=== PATIENT | female | born 1950 | race Caucasian/White ===

== ENCOUNTER → 2018-02-21 15:20 | Outpatient (CLI) | payer BC, SELFPAY ==
--- NOTE | 2018-02-21 15:25 | EKG12_ITS ---
Test Reason : PRE OP Blood Pressure : / mmHG Vent. Rate : 059 BPM Atrial Rate : 059 BPM P-R Int : 140 ms QRS Dur : 080 ms QT Int : 432 ms P-R-T Axes : 064 051 061 degrees QTc Int : 427 ms Sinus bradycardia Minimal voltage criteria for LVH, may be normal variant Borderline ECG Confirmed by HALIE BARROW, CASSIE ([id number]), purchase request editor NATALIE BELTRAN ([id number]) on 02/23/2018 1:11:53 PM Referred By: RUBY Confirmed By:CASSIE AMBROSE MD
== END ==
PROVIDERS: Family Provider Family Medicine; PCP Family Medicine; Visit Provider Orthopaedic Surgery
DX: Z01.810 Encounter for preprocedural cardiovascular examination (principal); Z01.811 Encounter for preprocedural respiratory examination
CPT/HCPCS: 93005

== ENCOUNTER 2019-03-24 15:04 | Emergency (ER) | payer BC, SELFPAY ==
[2019-03-24 15:05] VITALS: BP 129/83; PULSE 75; RESP 18; TEMP 36.6; O2SAT 99; BMI 23.1
--- NOTE | 2019-03-24 15:16 | ED.DCSUM_ITS ---
- ER Visit Summary Date of Service: 03/24/19 Chief Complaint: [Left eye redness] History of Present Illness: The patient is a 68 F [presents to the emergency department with left eye redness since yesterday evening. Patient also notes some mild burning discomfort. Patient had some tearing from the eye. She denies any photophobia. She denies any trauma. She does state that she thinks she touched her eye with some suntan lotion yesterday. Patient denies any visual changes. Patient is a diabetic and has history of high cholesterol. Patient states that she had retina surgery on her left eye last year.] Physical Examination: HEENT-PERRLA, EOMI. Cranial nerves II through XII grossly intact. TMs clear. Mucous membranes moist. No adenopathy. Thigh-patient has some faint conjunctival erythema around the iris. Small amount of tearing noted. Eyelids everted and no foreign body seen. After tetracaine instilled in the left eye patient had her eye pressure checked and it was 15. Visual acuity reveals patient have significant difference between the right eye and the left eye. Patient states that it is not unusual for her to have decreased vision left eye but may be a little bit worse than usual. Patient is able to count fingers. Cardiovascular-regular rate and rhythm without murmur or ectopy Lungs-clear to auscultation, chest wall stable without crepitus or subcu emphysema Abdomen-normoactive bowel sounds, soft, nontender, no rebound or rigidity, no peritoneal signs. Extremities-intact ?4, normal range of motion, normal pulses, atraumatic [] Test Results: [None indicated] Emergency Department Course and Treatment: [Patient will be started on gentamicin ophthalmic drops. I suspect the vision difference is a chronic issue for her.] Treatment Plan: [She will be referred to her loan expeditor for follow-up within the next 1 to 2 days.] Disposition: [Discharged home in stable condition.] Impression: [Left eye conjunctivitis] This note was generated with [employer] dictation software. It may contain incorrect words, spelling, and punctuation that were not noted in review of the chart prior to signing ED Disposition - Plan for ED Patient: Referrals: Ken Velásquez MD [Primary Care Provider] -
--- NOTE | 2019-03-24 15:27 | ED.DEP ---
ED Disposition - Plan for ED Patient: Instructions: CONJUNCTIVITIS, Bacterial Referrals: Ken Velásquez MD [Primary Care Provider] - Breezy Stack MD [STAFF PHYSICIAN] - 1-2 Days if not improving
[2019-03-24] MEDS: Fluorescein 1 MG STRIP 1 STRIP LEFT EYE (15:38)
[2019-03-24] MEDS: Tetracaine 0.5% Ophthalmic Bottle 1 DRP LEFT EYE (15:38)
[2019-03-24] MEDS: Gentamicin Sulfate 1 OPTH.BTL 2 DRP LEFT EYE (15:39)
== END 2019-03-24 15:39 | disposition home or self-care (01) ==
LOC: ED 15:29
PROVIDERS: Emergency Provider Emergency Medicine; Family Provider Family Medicine; PCP Family Medicine
DX: H10.9 Unspecified conjunctivitis (principal); E11.9 Type 2 diabetes mellitus without complications; E78.00 Pure hypercholesterolemia, unspecified; Z79.899 Other long term (current) drug therapy
CPT/HCPCS: 99282

== ENCOUNTER → 2019-10-22 15:49 | Outpatient (CLI) | payer BC, SELFPAY ==
--- NOTE | 2019-10-22 15:55 | EKG12_ITS ---
Test Reason : PRE OP Blood Pressure : / mmHG Vent. Rate : 065 BPM Atrial Rate : 065 BPM P-R Int : 136 ms QRS Dur : 082 ms QT Int : 414 ms P-R-T Axes : 030 014 021 degrees QTc Int : 430 ms Normal sinus rhythm Left atrial enlargement Left ventricular hypertrophy Abnormal ECG Confirmed by MATT BARROW, GAURAV ([id number]), news videotape editor NATALIE PORTILLO ([id number]) on 10/23/2019 10:18:33 AM Referred By: Poli Portillo Confirmed By:GAURAV GUTIERREZ MD
[2019-10-22 16:21] LABS: Hematocrit 44.2 % (37-47); Hemoglobin 14.6 g/dL (12.0-15.0); Mean Corpuscular Hgb 30.6 pg (27.0-32.0); Mean Corpuscular Volume 92.7 fL (81-99); Platelet Count 341 K/mm3 (150-450); RBC Distribution Width CV 12.8 % (11.6-14.6); RBC Distribution Width SD 43.6 fl (35.1-43.9); Red Blood Count 4.77 M/mm3 (4.2-5.4); White Blood Count 6.2 K/mm3 (4.4-11.0)
[2019-10-22 16:39] LABS: Anion Gap 9 (5-15); BUN 28 mg/dL (7-18); BUN/Creat Ratio 34.2 RATIO (10-20); Calcium,Total 8.9 mg/dL (8.5-10.1); Chloride 104 mmol/L (98-107); Creatinine, Serum 0.82 mg/dL (0.55-1.02); EST Glomerular Filtration Rate 74 mL/min (>60); Est Glom Filt Rate - Afr Amer 89 mL/min (>60); Glucose 97 mg/dL (74-106); Potassium 4.6 mmol/L (3.5-5.1); Sodium Level 139 mmol/L (136-145)
[2019-10-22 16:42] LABS: Prothrombin Time (Protime)PT. 13.1 SECONDS (11.7-14.9)
[2019-10-22 16:43] LABS: Partial Thromboplast Time 30.1 Seconds (24.1-36.2)
[2019-10-22 16:58] LABS: Hemoglobin A1c 5.9 % (4.2-6.3)
== END ==
PROVIDERS: PCP Family Medicine; Referring Provider Podiatrist Foot & Ankle Surgery; Visit Provider Podiatrist Foot & Ankle Surgery
DX: Z01.818 Encounter for other preprocedural examination (principal); E11.9 Type 2 diabetes mellitus without complications; Z01.811 Encounter for preprocedural respiratory examination; Z79.899 Other long term (current) drug therapy
CPT/HCPCS: 36415; 80048; 83036; 85027; 85610; 85730; 93005

== ENCOUNTER → 2019-11-21 16:27 | Outpatient (CLI) | payer BC, SELFPAY ==
[2019-11-21 17:05] LABS: Absolute Lymphocyte Count 1.73 X10^3/uL (0.83-4.51); Absolute Neutrophil Count 3.2 X10^3/uL (2.0-7.7); Basophil# 0.05 X10^3/uL; Basophil% 0.9 % (0-1); Eosinophil# 0.15 X10^3/uL; Eosinophils% 2.6 % (0-5); Hematocrit 44.4 % (37-47); Hemoglobin 14.3 g/dL (12.0-15.0); Lymphocyte # 1.73 X10^3/ul (4.0); Lymphocyte % 30.4 % (19-41); Mean Corp Hgb Conc 32.2 g/dL (32-36); Mean Corpuscular Volume 93.3 fL (81-99); Monocyte# 0.54 X10^3/uL; Monocyte% 9.5 % (0-10); NRBC Flagged by Analyzer 0 % (0-5); Neutrophil # 3.21 X10^3/uL (2.7-7.7); Neutrophil % 56.2 % (47-70); Platelet Count 354 K/mm3 (150-450); RBC Distribution Width CV 12.3 % (11.6-14.6); RBC Distribution Width SD 42.5 fl (35.1-43.9); Red Blood Count 4.76 M/mm3 (4.2-5.4); White Blood Count 5.7 K/mm3 (4.4-11.0)
[2019-11-21 18:04] LABS: Anion Gap 8 (5-15); BUN 33 mg/dL (7-18); BUN/Creat Ratio 51.7 RATIO (10-20); Calcium,Total 9.1 mg/dL (8.5-10.1); Chloride 105 mmol/L (98-107); Creatinine, Serum 0.64 mg/dL (0.55-1.02); EST Glomerular Filtration Rate 98 mL/min (>60); Est Glom Filt Rate - Afr Amer 119 mL/min (>60); Glucose 98 mg/dL (74-106); Potassium 4.2 mmol/L (3.5-5.1); Sodium Level 141 mmol/L (136-145)
== END ==
PROVIDERS: Physician Assistant; PCP Family Medicine; Referring Provider Podiatrist Foot & Ankle Surgery; Visit Provider Podiatrist Foot & Ankle Surgery
DX: Z01.818 Encounter for other preprocedural examination (principal)
CPT/HCPCS: 36415; 80048; 85025

== ENCOUNTER → 2020-02-11 10:25 | Outpatient (CLI) | payer BC, SELFPAY ==
[2020-02-11 10:45] LABS: Absolute Lymphocyte Count 1.58 X10^3/uL (0.83-4.51); Absolute Neutrophil Count 4.6 X10^3/uL (2.0-7.7); Basophil# 0.04 X10^3/uL; Basophil% 0.6 % (0-1); Eosinophil# 0.15 X10^3/uL; Eosinophils% 2.1 % (0-5); Hemoglobin 14.7 g/dL (12.0-15.0); Lymphocyte # 1.58 X10^3/ul (4.0); Lymphocyte % 22.3 % (19-41); Mean Corpuscular Hgb 29.6 pg (27.0-32.0); Mean Corpuscular Volume 92.6 fL (81-99); Monocyte# 0.69 X10^3/uL; Monocyte% 9.7 % (0-10); NRBC Flagged by Analyzer 0 % (0-5); Neutrophil # 4.61 X10^3/uL (2.7-7.7); Platelet Count 352 K/mm3 (150-450); RBC Distribution Width CV 12.9 % (11.6-14.6); RBC Distribution Width SD 43.6 fl (35.1-43.9); Red Blood Count 4.97 M/mm3 (4.2-5.4); White Blood Count 7.1 K/mm3 (4.4-11.0)
[2020-02-11 10:53] LABS: Prothrombin Time (Protime)PT. 13.1 SECONDS (11.7-14.9)
[2020-02-11 10:54] LABS: Partial Thromboplast Time 27.1 Seconds (24.1-36.2)
[2020-02-11 11:04] LABS: Hemoglobin A1c 5.7 % (3.8-5.6)
[2020-02-11 11:20] LABS: Anion Gap 3 (5-15); BUN 21 mg/dL (7-18); BUN/Creat Ratio 30.5 RATIO (10-20); Chloride 105 mmol/L (98-107); Creatinine, Serum 0.69 mg/dL (0.55-1.02); EST Glomerular Filtration Rate 90 mL/min (>60); Est Glom Filt Rate - Afr Amer 109 mL/min (>60); Glucose 100 mg/dL (74-106); Potassium 4.2 mmol/L (3.5-5.1); Sodium Level 138 mmol/L (136-145)
== END ==
PROVIDERS: PCP Family Medicine; Referring Provider Podiatrist Foot & Ankle Surgery; Visit Provider Podiatrist Foot & Ankle Surgery
DX: Z01.818 Encounter for other preprocedural examination (principal); E11.9 Type 2 diabetes mellitus without complications
CPT/HCPCS: 36415; 80048; 83036; 85025; 85610; 85730

== ENCOUNTER → 2020-02-19 10:26 | Outpatient (CLI) | payer BC, SELFPAY | PROVIDERS: PCP Family Medicine; Referring Provider Podiatrist Foot & Ankle Surgery; Visit Provider Podiatrist Foot & Ankle Surgery | DX: Z11.59 Encounter for screening for other viral diseases (principal) | CPT/HCPCS: 87635; C9803; U0003 ==

== ENCOUNTER 2024-03-01 10:44 | Emergency (ER) | payer MEDICARE, SELFPAY ==
[2024-03-01] VITALS (13 sets, daily range): BP systolic 114–152; BP diastolic 66–86; PULSE 54–98; RESP 14–18; TEMP 36.3–37.1; O2SAT 93–100; BMI 21.1
--- NOTE | 2024-03-01 10:58 | ED.RN ---
PT WAS TO HAVE FOOT SURGERY THIS MORNING BUT DR DENIED DOING THE SURGERY D/T THE WRIST REDNESS/INJURY. PT COULD NOT GET INTO PRIMARY SO THEY WENT TO URGENT CARE. URGENT CARE SAID THIS IS OVER OUR HEAD NM PT'S SON. THE FALL WAS YESTERDAY AT HOME WHEN TRYING TO MUSIC DIRECTOR THE CAT. DENIES HITTING HER HEAD OR ANY LOC. THEY ARE MOST CONCERNED AND UNSURE WITH THE REDNESS IF ITS INFECTION OR D/T A POSSIBLE FRACTURE. DENIES ANY LOSS OF SENSATION AND HAS ROM TO THE HAND AND WRIST BUT THERE IS TENDERNESS PRESENT. PT DOES HAVE A SMALL SCRATCH AND SON SAID SHE HAS A PUPPY THAT MAY HAVE SCRATCHED IT SO THEY ARE NOT SURE IF IT IS TWO THINGS GOING ON WITH THE WRIST AT ONCE.
--- NOTE | 2024-03-01 11:22 | EX.ED.UPPERE ---
HPI History of Present Illness Chief Complaint: Upper Extremity Injury Informant: patient Narrative Narrative: Patient is a 73-year-old female with history of osteoporosis and hyperlipidemia presenting for worsening redness to her right wrist and swelling. Patient reports that yesterday she went outside to try to bring her cat inside. States the cat did not want to come inside and was fighting her. She states she might have been bit or scratched on her wrist. She also fell and landed on her wrist. She denies any other injuries or hitting her head. She did not think much of it and today was due to have outpatient surgery on her foot with Dr. Romero. In preop they noticed that her wrist was red and swollen. She had an x-ray which did not show an obvious fracture but it showed soft tissue swelling. Was recommend she go to urgent care. The urgent care saw her and sent her here for concern of cellulitis. Patient denies any other complaint such as fever, chills, nausea or vomiting. She has pain and swelling of her wrist and hand with an associated rash. [facility] Medical History Wears glasses Cancer Post-menopausal Anxiety Marijuana use Diabetes Arthritis Restless legs Injury of head and neck Dietary restriction Heartburn Insomnia Non-smoker Leg cramps History of pain when walking Home Medications ?Medication ?Instructions ?Recorded ?Last Taken ?Type qdvgloqvrgrg-txstpqyq-ippw 1 ea PO DAILY 10/05/15 Unknown History fumarate 7.5 mg-folic acid 400 mcg tablet alendronate 70 mg tablet 70 mg PO KANG 02/23/24 Unknown History artificial tears with lanolin eye 1 applic LEFT EYE DAILY 02/23/24 Unknown History ointment (Ultra Fresh PM eye ointment) atorvastatin 20 mg tablet 20 mg PO QHS 02/23/24 Unknown History dexamethasone sodium phosphate 0.1 1 drp LEFT EYE BID 02/23/24 Unknown History % eye drops mirtazapine 7.5 mg tablet 3.75 mg PO QHS 02/23/24 Unknown History methylprednisolone 4 mg tablets in See Rx Instructions PO .COMPLEX 03/01/24 Unknown Rx a dose pack (Medrol (Dmitry)) #21 tabs Allergy/AdvReac Type Severity Reaction Status Date / Time No Known Allergies Allergy Verified 03/01/24 11:04 Surgical History Hx of left cataract extraction Hx of colonoscopy Hx of total knee arthroplasty Hx of total knee arthroplasty Hx of foot surgery Social History Smoking Status: Never smoker ROS ROS ED Constitutional Constitutional ED: Denies chills or fever(s) Cardiovascular Cardiovascular: Denies chest pain Respiratory/Chest Respiratory/Chest: Denies cough Gastrointestinal Gastrointestinal: Denies nausea or vomiting Musculoskeletal Musculoskeletal: Reports other Details: right wrist pain and swelling Integumentary Reports rash Neurologic Neurologic: Denies paresthesias or weakness Hematologic/Lymphatic Hematologic/Lymphatic: Denies easy bleeding or easy bruising EXAM Physical Exam Const Vital Signs: 03/01/24 10:45 03/01/24 10:48 Temperature 98.2 F 98.7 F Temperature Source Oral Oral Pulse Rate 54 L 59 L Respiratory Rate 14 14 Blood Pressure 130/66 H 114/70 Blood Pressure Mean 87 84 Pulse Ox 93 95 Oxygen Delivery Method Room Air Room Air Positive well nourished and well developed General Appearance ED: well developed and NAD HEENT normocephalic and atraumatic Eyes PERRL Chest Wall inspection of chest normal Resp normal respiratory effort and clear to auscultation bilaterally Cardio regular rate and regular rhythm Extremity Extremity Narrative: Diffuse soft tissue swelling of the right distal forearm, wrist and hand. No obvious bony deformity. No short arc range of motion pain with wrist or thumb movement. No bony tenderness to palpation of the wrist. Patient does have some mild pain with palpation diffusely of the wrist as well as with range of motion. Normal movement of the hand however range of motion is restricted due to edema. General Extremety ED: Yes edema General Extremity: edema Neuro oriented x3 Sensorium / Orientation: alert Motor Exam: muscle tone normal throughout; Negative for general weakness Psych mental status grossly normal Skin Skin Narrative: Erythema induration and warmth centered around the distal radius of the right wrist and extending down through the proximal thumb and up to the mid forearm. There is associated lymphangitic streaking going from the area of erythema up the forearm and past the AC fossa. There is a questionable small puncture wound over the lateral wrist as well as a small superficial skin tear at the base of the first MCP. No abscess appreciated at this time. MDM MDM MDM Narrative Medical decision making narrative: Patient is evaluated for increased redness and pain to her right wrist. She patient reported a fall yesterday but is hemic the fall was triggered when she was either bit or scratched by her cat. Outpatient x-ray reviewed which does not show any acute fracture but does show soft tissue swelling. No gas is seen. Based on the clinical exam of a high suspicion for cellulitis from a cat bite. Will check labs and start the patient on IV Unasyn. Given the rapid progression with associated lymphangitic streaking and the patient's age will discuss with plastic surgery she might require admission for IV antibiotics and possible cleanout. Lab work largely normal however her CRP is elevated. Patient started on IV Unasyn. Patient evaluated by plastics in the ER who feels that patient should be admitted for IV antibiotics and serial evaluation as she might ultimately require washout especially if she worsens. Unfortunately he will be out of town this weekend and not able to be on consult. I spoke with Ortho on-call who does not feel comfortable performing a washout of the hand/wrist. Because of this, ultimately patient will require transfer. Initially called [facility] Per patient request but they do not have any beds available at this time due to being at capacity. I then spoke with medicine at [facility] and patient is excepted by Dr. England, to the medicine service. Patient is agreeable with this plan of care. Nursing staff called the patient's son to notify him of the plan. Management Discussion w/another healthcare provider: [employer] Territory Manager Discharge Plan Triage Chief Complaint: Upper Extremity Injury ED Provider: Tarsha Bell Dx/Rx/DC Orders Clinical Impression: Cellulitis of right wrist, Cat bite of hand Prescriptions: No Action egdbyrki-hfp-rhdh fum-folic ac 1 EACH tablet 1 ea PO DAILY Ultra Fresh PM Ointment 1 applic LEFT EYE DAILY alendronate 70 mg tablet 70 mg PO KANG dexamethasone sodium phosphate 0.1 % drops 1 drp LEFT EYE BID atorvastatin 20 mg tablet 20 mg PO QHS mirtazapine 7.5 mg tablet 3.75 mg PO QHS methylprednisolone [Medrol (Dmitry)] 4 mg tablets,dose pack See Rx Instructions .ROUTE .COMPLEX Qty: 21 0RF Rx Instructions: for 6 days Primary Care Provider: Ken Velásquez Referrals: Ken Velásquez MD [Primary Care Provider] - Print Language: Macedonian Disposition Disposition: Acute Care Hospital Discharge Location: [facility]
[2024-03-01] MEDS: 0.9% Normal Saline (1000mL) 1,000 ML 15 ML IV (11:34)
[2024-03-01] MEDS: Diphth,Pertuss(Acell),Tet Vac 0.5 ML Vial IM (11:35)
[2024-03-01 11:42] LABS: Absolute Lymphocyte Count 0.85 X10^3/uL (0.83-4.51); Absolute Neutrophil Count 8.7 X10^3/uL (2.0-7.7); Basophil# 0.04 X10^3/uL; Basophil% 0.4 % (0-1); Eosinophil# 0.03 X10^3/uL; Eosinophils% 0.3 % (0-5); Hematocrit 45.7 % (37-47); Hemoglobin 14.8 g/dL (12.0-15.0); Lymphocyte # 0.85 X10^3/ul (0.83-4.51); Lymphocyte % 7.8 % (19-41); Mean Corp Hgb Conc 32.4 g/dL (32-36); Mean Corpuscular Hgb 30.6 pg (27.0-32.0); Mean Corpuscular Volume 94.4 fL (81-99); Mean Platelet Vol. 8.9 fl (6.2-12.0); Monocyte# 1.26 X10^3/uL; Monocyte% 11.6 % (0-10); NRBC Flagged by Analyzer 0 % (0-5); Neutrophil # 8.65 X10^3/uL (2.7-7.7); Neutrophil % 79.5 % (47-70); Platelet Count 278 K/mm3 (150-450); RBC Distribution Width SD 44.8 fl (35.1-43.9); Red Blood Count 4.84 M/mm3 (4.2-5.4); White Blood Count 10.9 K/mm3 (4.4-11.0)
[2024-03-01 11:53] LABS: Erythrocyte Sedimentation Rate 12 mm/hr (0-30)
[2024-03-01 11:57] LABS: Anion Gap 6 (5-15); BUN 20 mg/dL (7-18); BUN/Creat Ratio 25.1 RATIO (10-20); Calcium,Total 9.1 mg/dL (8.5-10.1); Chloride 106 mmol/L (98-107); EST Glomerular Filtration Rate 75 mL/min (>60); Est Glom Filt Rate - Afr Amer 91 mL/min (>60); Estimated Creatinine Clearance 47.97 ml/min; Glucose 100 mg/dL (74-106); Potassium 3.9 mmol/L (3.5-5.1); Sodium Level 140 mmol/L (136-145)
[2024-03-01] MEDS: NORMAL SALINE 0.9% IV (12:14)
[2024-03-01] MEDS: AMPICILLIN IV (12:14)
[2024-03-01] MEDS: SULBACTAM IV (12:14)
--- NOTE | 2024-03-01 13:13 | CON.PCM.SX_ITS ---
Assessment & Plan Assessment/Plan (1) Cellulitis of right wrist: PLAN: Patient has severe cellulitis secondary to cat bite on the right upper extremity. She needs admission for IV antibiotics and serial examinations by hand surgeon. There is no definitive septic joint at this point based on my exam, but she should be examined consistently by hand surgeon. I will not be available this weekend to follow the patient, and we do not have an on-call hand surgeon at our hospital this weekend. Therefore recommend transfer to a tertiary care center with hand surgery for serial examination and IV antibiotics. HPI Consult Data Date of Consult: 03/01/24 HPI Narrative Reason for Consultation: Right upper extremity cat bite HPI Narrative: ARIE MARIA, is a 73 F who presents with right upper extremity cat bites that occurred yesterday for whom I was consulted for regarding right upper extremity infection (right hand and wrist swelling). She reports that she was trying to her cat inside and the cat was fighting/biting her, injuring her in her wrist with multiple bites. She has hurt that hand before from previous bite from an animal in the remote past. She denies any fever chills nausea or vomiting but has sharp severe right upper extremity pain worsened by movements and improved by rest and elevation. X-rays of the right upper extremity did not demonstrate any foreign body or any fracture/dislocation. I personally reviewed the x-ray from today as well. [facility] Medical History Wears glasses Cancer Post-menopausal Anxiety Marijuana use Diabetes Arthritis Restless legs Injury of head and neck Dietary restriction Heartburn Insomnia Non-smoker Leg cramps History of pain when walking Home Medications ?Medication ?Instructions ?Recorded ?Last Taken ?Type jtlsobabtqhq-bzexzvia-cmte 1 ea PO DAILY 10/05/15 Unknown History fumarate 7.5 mg-folic acid 400 mcg tablet alendronate 70 mg tablet 70 mg PO KANG 02/23/24 Unknown History artificial tears with lanolin eye 1 applic LEFT EYE DAILY 02/23/24 Unknown History ointment (Ultra Fresh PM eye ointment) atorvastatin 20 mg tablet 20 mg PO QHS 02/23/24 Unknown History dexamethasone sodium phosphate 0.1 1 drp LEFT EYE BID 02/23/24 Unknown History % eye drops mirtazapine 7.5 mg tablet 3.75 mg PO QHS 09/13/24 Unknown History methylprednisolone 4 mg tablets in See Rx Instructions PO .COMPLEX 03/01/24 Unknown Rx a dose pack (Medrol (Dmitry)) #21 tabs Allergy/AdvReac Type Severity Reaction Status Date / Time No Known Allergies Allergy Verified 03/01/24 11:04 Surgical History Hx of left cataract extraction Hx of colonoscopy Hx of total knee arthroplasty Hx of total knee arthroplasty Hx of foot surgery Social History Smoking Status: Never smoker Physical Exam Narrative Right upper extremity: Redness and induration on the dorsum of the left hand and forearm with streaking erythema up the forearm to the elbow. There are multiple puncture wounds/scratches on the dorsum of the hand and the dorsum of the wrist. There is no definitive pain with axial loading of the right wrist, or the right thumb base, rather referred pain into the hand soft tissue and wrist soft tissue overlying. No definitive palpable fluid collection. Motor: Unable to make a fist secondary to the pain and swelling. Limited range of motion. Vascular: Fingers are warm and well-perfused Sensory: Sensation to light touch intact distal distal to the zone of injury. Const alert and oriented x3 Lab / Micro Data 03/01/24 11:30 03/01/24 11:30 Labs: Laboratory Results - last 24 hr 03/01/24 11:30: WBC 10.9, RBC 4.84, Hgb 14.8, Hct 45.7, MCV 94.4, MCH 30.6, MCHC 32.4, RDW Std Deviation 44.8 H, RDW Coeff of Yasmine 13.0, Plt Count 278, MPV 8.9, Immature Gran % (Auto) 0.400, Neut % (Auto) 79.5 H, Lymph % (Auto) 7.8 L, [place] % (Auto) 11.6 H, Eos % (Auto) 0.3, Baso % (Auto) 0.4, Absolute Neuts (auto) 8.7 H, Absolute Lymphs (auto) 0.85, Nucleated RBC % 0, ESR 12, Sodium 140, Potassium 3.9, Chloride 106, Carbon Dioxide 28.0, Anion Gap 6, BUN 20 H, Creatinine 0.80, Estim Creat Clear Calc 47.97, Est GFR (MDRD) Af Amer 91, Est GFR (MDRD) Non-Af 75, BUN/Creatinine Ratio 25.1 H, Glucose 100, Calcium 9.1, C-React Prot Ext Range 35.90 H Charges/Coding Visit Charges Office Visits / Consults: 33678 OV L4 New 45min
--- NOTE | 2024-03-01 15:09 | ED.RN ---
THIS RN CALLED PT SON. INFORMED SON THAT PT IS ACCEPTED AT [facility]
== END 2024-03-01 19:41 | disposition short-term general hospital (02) ==
PROVIDERS: Emergency Provider Emergency Medicine; PCP Family Medicine; Visit Provider Emergency Medicine
DX: L03.113 Cellulitis of right upper limb (principal); E11.9 Type 2 diabetes mellitus without complications; S61.551A Open bite of right wrist, initial encounter; Z79.899 Other long term (current) drug therapy; W55.01XA Bitten by cat, initial encounter
CPT/HCPCS: 80048; 85025; 85652; 86140; 87040; 90471; 90715; 96365; 99284; J7030; A4216; J3490

== ENCOUNTER 2024-05-17 07:33 | Emergency (ER) | payer MEDICARE, SELFPAY ==
[2024-05-17 07:34] VITALS: BP 152/77; PULSE 58; RESP 16; TEMP 36.8; O2SAT 100
[2024-05-17 07:36] VITALS: BP 134/78; PULSE 54; RESP 16; TEMP 36.6; O2SAT 98; BMI 21.3
--- NOTE | 2024-05-17 07:42 | ED.RN ---
PT WAS TREATED HERE FOR A CAT BITE TO THE SAME HAND AND WAS TRANSFERRED OUT TO A SPECIALIST. TODAY PT HAS C/O SAME RIGHT HAND WAS BIT BY HER DOG. SON AT THE BEDSIDE. SENT OVER FROM HER PHYSICIANS OFFICE.
[2024-05-17] MEDS: Diphth,Pertuss(Acell),Tet Vac 0.5 ML Vial IM (08:25)
[2024-05-17] MEDS: Cefazolin 1 GM/5 ML Vial IM (08:36)
[2024-05-17 08:46] VITALS: BP 134/81; PULSE 63; RESP 16; TEMP 36.6; O2SAT 99
--- NOTE | 2024-05-17 08:53 | EX.ED.DYSGE1 ---
HPI History of Present Illness Chief Complaint: Bite Narrative Narrative: 73-year-old female who is presenting to the ER today with chief complaint of a dog bite/abrasion/puncture wound to the right hand that occurred yesterday around 5 PM. Patient has no fever, chills, nausea or vomiting. Son is at bedside. Patient does not know when the last time she had a tetanus shot was, probably over 10 years ago. Patient was seen at a [place] [facility] today and sent to the ER for evaluation. Patient's hand has minimal erythema to the right hand. She has no pain. She has excellent range of motion to the right wrist and hand, patient has no acute indication for any lab work, IV at this time. Discussion of the risk and benefits of performing x-ray of the right hand to rule out any type of foreign body/teeth was discussed at bedside, patient has no pain, no discomfort, does not believe she has any teeth in her hand, patient is declining the x-ray at this time. Son agrees. [facility] Medical History Wears glasses Cancer Post-menopausal Anxiety Marijuana use Diabetes Arthritis Restless legs Injury of head and neck Dietary restriction Heartburn Insomnia Non-smoker Leg cramps History of pain when walking Home Medications ?Medication ?Instructions ?Recorded ?Last Taken ?Type clyvsbgtgxul-fsxzcbcw-peli 1 ea PO DAILY 10/05/15 Unknown History fumarate 7.5 mg-folic acid 400 mcg tablet alendronate 70 mg tablet 70 mg PO KANG 02/23/24 Unknown History artificial tears with lanolin eye 1 applic LEFT EYE DAILY 02/23/24 Unknown History ointment (Ultra Fresh PM eye ointment) atorvastatin 20 mg tablet 20 mg PO QHS 02/23/24 Unknown History dexamethasone sodium phosphate 0.1 1 drp LEFT EYE BID 02/23/24 Unknown History % eye drops mirtazapine 7.5 mg tablet 3.75 mg PO QHS 02/23/24 Unknown History methylprednisolone 4 mg tablets in See Rx Instructions PO .COMPLEX 03/01/24 Unknown Rx a dose pack (Medrol (Dmitry)) #21 tabs amoxicillin 875 mg-potassium 875 mg PO Q12H #20 TABLETS 05/17/24 Unknown Rx clavulanate 125 mg tablet mupirocin 2 % topical ointment 1 applic topical TID Right hand 05/17/24 Unknown Rx puncture wound 14 days #1 tube Allergy/AdvReac Type Severity Reaction Status Date / Time No Known Allergies Allergy Verified 05/17/24 07:40 Surgical History Hx of left cataract extraction Hx of colonoscopy Hx of total knee arthroplasty Hx of total knee arthroplasty Hx of foot surgery Social History Smoking Status: Never smoker ROS ROS ED ROS Narrative REVIEW OF SYSTEMS: Unless otherwise stated in this report the patient's positive and negative responses for review of systems for constitutional, eyes, ENT, cardiovascular, respiratory, gastrointestinal, neurological, , musculoskeletal, and integument systems and related systems to the presenting problem are either stated in the history of present illness or were not pertinent or were negative for the symptoms and/or complaints related to the presenting medical problem. EXAM Physical Exam Narrative Exam Narrative: Vital signs reviewed and patient is not hypoxic. General: The patient appears well and in no apparent distress. Patient is resting comfortably on cart. Not toxic, lethargic, or listless. Skin: Warm, dry, no pallor noted. There is no rash noted. Patient has superficial abrasions and 1 small puncture wound to the dorsal aspect of her right hand, over the metacarpal bones. There is minimal swelling, minimal redness and erythema. Patient has full range of motion of her right wrist, all 5 fingers of her right hand with no difficulty. She has no motor, sensory, or neurovascular compromise to all 5 fingers of the right hand. Patient has no palpable foreign body noted, minimal swelling. Head: Normocephalic, atraumatic Eye: Normal conjunctiva, no drainage, EOMI. PERRL. Ears, Nose, Mouth, and Throat: oral mucosa is moist. Nares patent. Mouth without vesicles. Cardiovascular: Regular Rate and Rhythm, no murmurs, gallops, or rubs Respiratory: Patient is in no distress, no accessory muscle use, lungs are clear to auscultation, no wheezing, rales or rhonchi Back: non-tender, GI: Soft, no tenderness Musculoskeletal: The patient has full range of motion of all extremities and joints with no difficulty. Patient has no motor, no sensory deficits. Neurological: A&O x4, normal speech, no focal neurological deficits. Psychiatric: Cooperative Const Vital Signs: 05/17/24 07:34 05/17/24 07:36 05/17/24 08:46 Temperature 98.3 F 97.9 F 97.8 F Temperature Source Oral Oral Pulse Rate 58 L 54 L 63 Respiratory Rate 16 16 16 Blood Pressure 152/77 H 134/78 H 134/81 H Blood Pressure Mean 102 96 98 Pulse Ox 100 98 99 Oxygen Delivery Method Room Air Room Air MDM MDM MDM Narrative Medical decision making narrative: Patient has full range of motion of right wrist, hand with no difficulty. Patient has minimal redness and erythema to the dorsal aspect of the right hand, no signs of acute cellulitis at this time. This appears to be more anti-inflammatory. Patient was seen at a [place] [facility] and sent to the ER. There is no acute indication for IV, lab work at this time. Patient declines x-ray. Shared decision making was done on performing x-ray. Patient is not diabetic. Patient was given IM injection of Ancef for aggressive treatment and then will be placed on Augmentin and Bactroban ointment. The area was cleaned, dressed in the ER with bacitracin and dry dressing. Patient had tetanus updated. Patient will follow-up with PCP on Monday or Monday for wound recheck. No question at discharge Discharge Plan Triage Chief Complaint: Bite ED Provider: Nura Schultz Dx/Rx/DC Orders Clinical Impression: Dog bite of right hand, Abrasion of hand, right, Puncture wound of hand, right Instructions: First Aid: Punctures, ED Abrasion, ED Dog Bite, ED Puncture Wound (General) Prescriptions: New mupirocin 2 % ointment 1 applic topical TID 14 Days Qty: 1 0RF amoxicillin-pot clavulanate 875-125 mg tablet 875 mg PO Q12H Qty: 20 0RF No Action fexdzfpi-ajy-zvbq fum-folic ac 1 EACH tablet 1 ea PO DAILY Ultra Fresh PM Ointment 1 applic LEFT EYE DAILY alendronate 70 mg tablet 70 mg PO KANG dexamethasone sodium phosphate 0.1 % drops 1 drp LEFT EYE BID atorvastatin 20 mg tablet 20 mg PO QHS mirtazapine 7.5 mg tablet 3.75 mg PO QHS methylprednisolone [Medrol (Dmitry)] 4 mg tablets,dose pack See Rx Instructions .ROUTE .COMPLEX Qty: 21 0RF Rx Instructions: for 6 days Primary Care Provider: Ken Velásquez Referrals: Ken Velásquez MD [Primary Care Provider] - Activity Restrictions/Additional Instructions: Use antibiotic ointment 3 times a day for the next 10 to 14 days. Alternate Tylenol and Motrin as needed for pain, but more importantly use ice 20 minutes on, 20 minutes off to help with pain, swelling and inflammation. Do not use heat. The redness and swelling will get worse in the next 1 to 2 days before it gets better, patient was given a intramuscular injection today of antibiotics to help with aggressive antibiotic treatment. Patient is prescribed oral antibiotics and topical antibiotic ointment. Follow-up with PCP on Monday or Monday for wound reevaluation. Print Language: Turkish Disposition Disposition: Home, Self Care
== END 2024-05-17 08:58 | disposition home or self-care (01) ==
PROVIDERS: Emergency Provider Emergency Medicine; PCP Family Medicine; Visit Provider Emergency Medicine
DX: S61.431A Puncture wound without foreign body of right hand, initial encounter (principal); S60.511A Abrasion of right hand, initial encounter; W54.0XXA Bitten by dog, initial encounter; Z23 Encounter for immunization
CPT/HCPCS: 90471; 90715; 96372; 99283

== ENCOUNTER 2024-05-18 15:53 | Emergency (ER) | payer MEDICARE, SELFPAY ==
[2024-05-18 15:53] VITALS: BP 126/78; PULSE 66; RESP 18; TEMP 35.9; O2SAT 98; BMI 21.7
--- NOTE | 2024-05-18 16:30 | EX.ED.DYSGE1 ---
HPI <MARLENA Garcia - Last Filed: 05/18/24 16:35> History of Present Illness Chief Complaint: Bite Narrative Narrative: Patient is a 73-year-old female with history of hypertension, hyperlipidemia presents to the emergency department for a cat bite. Patient was actually seen here yesterday and bit by the same cat in the hand. Patient was placed on mupirocin ointment as well as Augmentin. Patient is taken 1 full round of the medications. Patient states that she was breaking up a fight between her cat and dog again, and the cat bit her into her right forearm. Patient has no redness there however she is concerned. Here for evaluation PFS <MARLENA Garcia - Last Filed: 05/18/24 16:35> [facility] Medical History Wears glasses Cancer Post-menopausal Anxiety Marijuana use Diabetes Arthritis Restless legs Injury of head and neck Dietary restriction Heartburn Insomnia Non-smoker Leg cramps History of pain when walking Home Medications ?Medication ?Instructions ?Recorded ?Last Taken ?Type pzpibhqpicua-hfdbpxeo-vojz 1 ea PO DAILY 10/05/15 Unknown History fumarate 7.5 mg-folic acid 400 mcg tablet alendronate 70 mg tablet 70 mg PO KANG 02/23/24 Unknown History artificial tears with lanolin eye 1 applic LEFT EYE DAILY 02/23/24 Unknown History ointment (Ultra Fresh PM eye ointment) atorvastatin 20 mg tablet 20 mg PO QHS 02/23/24 Unknown History dexamethasone sodium phosphate 0.1 1 drp LEFT EYE BID 02/23/24 Unknown History % eye drops mirtazapine 7.5 mg tablet 3.75 mg PO QHS 02/23/24 Unknown History methylprednisolone 4 mg tablets in See Rx Instructions PO .COMPLEX 03/01/24 Unknown Rx a dose pack (Medrol (Dmitry)) #21 tabs amoxicillin 875 mg-potassium 875 mg PO Q12H #20 TABLETS 05/17/24 Unknown Rx clavulanate 125 mg tablet mupirocin 2 % topical ointment 1 applic topical TID Right hand 05/17/24 Unknown Rx puncture wound 14 days #1 tube Allergy/AdvReac Type Severity Reaction Status Date / Time No Known Allergies Allergy Verified 05/18/24 15:53 Surgical History Hx of left cataract extraction Hx of colonoscopy Hx of total knee arthroplasty Hx of total knee arthroplasty Hx of foot surgery Social History Smoking Status: Never smoker ROS <MARLENA Garcia - Last Filed: 05/18/24 16:35> ROS ED ROS Narrative Constitutional: Negative for fever, chills, weight loss, weakness Eyes: Negative for vision loss, vision change, double vision ENT: Negative for any sore throat, ear pain, congestion Cardiovascular: Negative for any chest pain, tightness, palpitations Respiratory: Negative for any cough, sputum production, hemoptysis, dyspnea, dyspnea on exertion, orthopnea Gastrointestinal: Negative for any abdominal pain, nausea, vomiting, diarrhea, constipation, blood in stool, blood in vomit : Negative for any urinary frequency, dysuria, retention, blood in urine Muscle skeletal: Negative for any neck pain, back pain Neurological: Negative for any headache, syncope, dizziness Skin: Negative for any rashes, itching, lacerations. Positive for abrasions, bite greene to the right hand, right forearm Psychiatric: Negative for any depression, anxiety, stress, suicidal ideation, homicidal ideation Hematologic: Negative for any excessive bruising, easy bleeding EXAM <MARLENA Garcia - Last Filed: 05/18/24 16:35> Physical Exam Narrative Exam Narrative: Vital signs reviewed. Extremities: No peripheral edema, no signs of gross trauma or deformity. Active full range of motion of all extremities. Patient does have slight redness to the dorsal aspect of the hand, however there is no significant swelling. There is no extreme warmth. Patient is able to flex and extend all digits without any difficulty. The new cat bite area is to the mid forearm on the dorsal aspect, this is showing no redness. +2 radial pulse Neuro: Cranial nerves II through XII intact, no focal neurological deficits. Skin: Clean dry and intact with no rash, purpura, petechiae, vesicles or pustules. Backs/flank: No CVA tenderness, no midline spinal tenderness, no deformity. Psych: Normal mood and affect. No SI, HI or acute psychosis. Const Vital Signs: 05/18/24 15:53 Temperature 96.7 F L Temperature Source Temporal Pulse Rate 66 Respiratory Rate 18 Blood Pressure 126/78 H Blood Pressure Mean 94 Pulse Ox 98 Oxygen Delivery Method Room Air <Dr. Tamir Paredes DO - Last Filed: 05/18/24 22:19> Physical Exam Const Vital Signs: 05/18/24 15:53 Temperature 96.7 F L Temperature Source Temporal Pulse Rate 66 Respiratory Rate 18 Blood Pressure 126/78 H Blood Pressure Mean 94 Pulse Ox 98 Oxygen Delivery Method Room Air [facility] <MARLENA Garcia - Last Filed: 05/18/24 16:35> [facility] Treatment and Re-Evaluation :: Differential diagnosis includes however is not limited to: Cellulitis, tenosynovitis, foreign body, cat bite, abscess Patient appears generally well, vital signs are stable, patient is nontoxic-appearing. Presenting to the emergency department for reevaluation after a second cat bite 2 days in a row. Patient's dorsal aspect of the hand does look slightly red however not concern for significant cellulitis. Patient has only been on 1 day of antibiotic. The new bites are unremarkable, there is no evidence of foreign body erythema, drainage. The plan will be that the patient will continue to use the mupirocin ointment as well as the Augmentin. The patient is to stop getting bit by this cat. Patient will continue to ice, elevate, and return for any worsening redness fever chills nausea or vomiting. Stable for discharge. <Dr. Tamir Paredes, - Last Filed: 05/18/24 22:19> [facility] Treatment and Re-Evaluation :: Differential diagnosis includes however is not limited to: Cellulitis, tenosynovitis, foreign body, cat bite, abscess Patient appears generally well, vital signs are stable, patient is nontoxic-appearing. Presenting to the emergency department for reevaluation after a second cat bite 2 days in a row. Patient's dorsal aspect of the hand does look slightly red however not concern for significant cellulitis. Patient has only been on 1 day of antibiotic. The new bites are unremarkable, there is no evidence of foreign body erythema, drainage. The plan will be that the patient will continue to use the mupirocin ointment as well as the Augmentin. The patient is to stop getting bit by this cat. Patient will continue to ice, elevate, and return for any worsening redness fever chills nausea or vomiting. Stable for discharge. ED attending note: I evaluated the patient in conjunction with the JU. I agree with his/her statements and above findings. I have personally performed a face to face assessment of the patient and have reviewed the JU Note. I performed a substantive portion of the visit including all aspects of the following. I personally saw the patient performed chart review, physical exam, reviewed labs, imaging (if obtained), and formulated a treatment and management plan. This note was generated with [employer] dictation software. It may contain incorrect words, spelling, and punctuation that were not noted in review of the chart prior to signing. Discharge Plan Triage Chief Complaint: Bite ED Midlevel Provider: Yoel Rizzo ED Provider: Tamir Paredes Dx/Rx/DC Orders Clinical Impression: Cat bite, Cellulitis of hand Instructions: Animal Bites and Scratches, Cellulitis Dc, ED Cat Bite Prescriptions: No Action fljqrviu-myp-mwsc fum-folic ac 1 EACH tablet 1 ea PO DAILY mupirocin 2 % ointment 1 applic topical TID 14 Days Qty: 1 0RF amoxicillin-pot clavulanate 875-125 mg tablet 875 mg PO Q12H Qty: 20 0RF Ultra Fresh PM Ointment 1 applic LEFT EYE DAILY alendronate 70 mg tablet 70 mg PO KANG dexamethasone sodium phosphate 0.1 % drops 1 drp LEFT EYE BID atorvastatin 20 mg tablet 20 mg PO QHS mirtazapine 7.5 mg tablet 3.75 mg PO QHS methylprednisolone [Medrol (Dmitry)] 4 mg tablets,dose pack See Rx Instructions .ROUTE .COMPLEX Qty: 21 0RF Rx Instructions: for 6 days Primary Care Provider: Ken Velásquez Referrals: Ken Velásquez MD [Primary Care Provider] - Activity Restrictions/Additional Instructions: You need to take the antibiotics twice a day for 10 days total. He may ice and elevate. Use the mupirocin ointment. If worsening redness in the next 48 hours, please return. Print Language: Kittitian Disposition Disposition: Home, Self Care Discharge Date/Time: 05/18/24 17:03
== END 2024-05-18 17:03 | disposition home or self-care (01) ==
LOC: ED 16:41
PROVIDERS: Emergency Provider Emergency Medicine; PCP Family Medicine; Visit Provider Emergency Medicine
DX: S50.871A Other superficial bite of right forearm, initial encounter (principal); L03.113 Cellulitis of right upper limb; W55.01XA Bitten by cat, initial encounter; Y93.89 Activity, other specified
CPT/HCPCS: 99283

== ENCOUNTER 2024-05-22 13:00 | Outpatient (CLI) | payer MEDICARE, SELFPAY ==
[2024-03-01 06:26] VITALS: BP 133/77; PULSE 56; RESP 16; TEMP 37.2; O2SAT 99; BMI 21.5
[2024-03-01 07:05] LABS: Bedside Glucose 125 mg/dL (74-106)
--- NOTE | 2024-03-01 07:05 | RAD_ITS ---
EXAM: XR RIGHT WRIST COMPLETE, 3 OR MORE VIEWS CLINICAL INDICATION: injury, pain/swelling, hot to touch TECHNIQUE: Frontal, lateral and oblique views of the right wrist. COMPARISON: No relevant prior studies available. FINDINGS: BONES/JOINTS: Moderate osteoarthritis right 1st carpometacarpal joint and radiocarpal joint. No acute fracture. No subluxation. Normal alignment. No sclerotic or destructive changes observed. SOFT TISSUES: Diffuse soft tissue swelling around the wrist. No radiopaque foreign body. RAD/Wrist min 3 Views IMPRESSION: 1. Diffuse soft tissue swelling around the wrist. 2. Moderate osteoarthritis right 1st carpometacarpal joint and radiocarpal joint. Electronically Signed: Chad Garcia MD at 7:27 EDT ,
[2024-03-01 07:30] VITALS: BP 133/77; PULSE 56; RESP 16; TEMP 37.2; O2SAT 99
--- NOTE | 2024-03-01 07:30 | PCM.PRE.AN2 ---
ASA Classification* ASA Classification ASA Classification: 2 Assessment & Plan Anesthesia* Anesthesia Assessment Anesthesia Assessment: Discussed sedation and/or anesthesia options, risks, benefits, and alternatives with patient/parents/legal guardian/POA. Questions invited. The patient/parents/legal guardian/POA seems to understand and agrees to proceed with anesthesia plan. Reviewed the physical assessment, medical history, allergy history and patient home medications list prior to surgery/procedure/anesthetic and documented any changes. Performed airway and anesthesia risk assessments. Procedural Plan Procedural Plan:: Surgeon canceled surgery Anesthesia Type Anesthesia Type: General (case cancelled see written pre anesthesia record for full assessment) Anesthesia Focused Assessment* Temperature: 98.9 F Pulse Rate: 56 Blood Pressure: 133/77 Respiratory Rate: 16 Pulse Ox: 99 Airway Assessment Mouth opens: >3 cm Mallampati Score: II Focused Labs Anesthesia Preop lab: CBC WBC 7.1 K/mm3 (4.4-11.0) 02/11/20 10:29 RBC 4.97 M/mm3 (4.2-5.4) 02/11/20 10:29 Hgb 14.7 g/dL (12.0-15.0) 02/11/20 10:29 Hct 46.0 % (37-47) 02/11/20 10:29 Plt Count 352 K/mm3 (150-450) 02/11/20 10:29 CHEMISTRY Potassium 4.2 mmol/L (3.5-5.1) 02/11/20 10:29 Sodium 138 mmol/L (136-145) 02/11/20 10:29 BUN 21 mg/dL (7-18) H 02/11/20 10:29 Creatinine 0.69 mg/dL (0.55-1.02) 02/11/20 10:29 Glucose 100 mg/dL (74-106) 02/11/20 10:29 POC Glucose 125 mg/dL (74-106) H 03/01/24 06:25 COAG PT 13.1 SECONDS (11.7-14.9) 02/11/20 10:29 Pre-Assessment Diagnosis/Proposed Procedure Planned Operative Procedure(s): HARDWARE REMOVAL FROM 5TH METATARSAL OF LEFT FOOT Anesthesia History Anesthesia History - mental health program director: Anesthesia History - mental health program director Hx Hospitalization No 02/23/24 14:15 Any Problems With Anesthesia No 02/23/24 14:15 Cholinesterase deficiency No 02/23/24 14:15 You/Your Family Experience No 02/23/24 14:15 fever (hyperthermia) with Relationship Recent Exposure to Contagious Disease Does patient have nerve No 02/23/24 14:15 stimulator Patient instructed to have device shut off --Does patient have Pacemaker No 03/01/24 06:26 or ICD? When Was Last Pacemaker Check QUESTION #4 FULL TEXT: You/Your Family Experience fever (hyperthermia) with Anesthesia Last Oral Intake Last Oral intake: Last Oral Intake NPO since Meds taken in AM with sips of water? Meds patient instructed to take am of surgery PONV PONV - mental health program director: PONV - mental health program director Female Yes 02/23/24 14:15 HX of Motion Sickness No 02/23/24 14:15 HX of N/V After Surgery No 02/23/24 14:15 Non-Smoker Yes 02/23/24 14:15 Duration of Surgery greater No 02/23/24 14:15 than 60 minutes Number of Risk Factors 2 02/23/24 14:15 PONV Score Moderate Risk 02/23/24 14:15 Height & Weight Height & Weight: Anesthesia: Height & Weight Height 5 ft 03/01/24 06:26 Weight: 50 kg 03/01/24 06:26 Body Mass Index (BMI) 21.5 03/01/24 06:26 Respiratory Assessment Respiratory Assessment - mental health program director: Respiratory Tract Infection Hx - mental health program director Hx Respiratory Tract Infection No 02/23/24 14:15 STOP Sleep Apnea STOP Sleep Apnea - mental health program director: STOP Sleep Apnea - mental health program director Hx Hypertension No 02/23/24 14:15 Hx Sleep Apnea No 02/23/24 14:15 CPAP BIPAP Do you snore loudly (louder No 02/23/24 14:15 than talking or can be heard Do you often feel tired/ Yes 02/23/24 14:15 fatigued/ sleepy during daytime? Has anyone observed you stop No 02/23/24 14:15 breathing during sleep? STOP Results Negative 02/23/24 14:15 QUESTION #5 FULL TEXT : Do you snore loudly (louder than talking or can be heard through closed doors)? Tobacco Use History Tobacco Use History - mental health program director: Tobacco Use History - mental health program director Tobacco Use Smoking Status Never smoker 02/23/24 14:15 Hx Tobacco Use No 02/23/24 14:15 Years Smoking Packs Smoked per Day Smoking Cessation Date was within the last 15 years Hx Smoking Cessation Date Hx Smoking Cessation Counseling Hematologic Medial History Hematologic Hx - mental health program director: Hematologic Medical Hx - documentation supervisor Hx of Blood Transfusion No 02/23/24 14:15 Hx of Transfusion in last 3 No 02/23/24 14:15 Months Date of Last Transfusion (if within last 3 months) Ever experience any problems No 02/23/24 14:15 with transfusion(s)? Specify any problems Hx of Preganancy in last 3 No 02/23/24 14:15 Months Nurse Filling Out Transfusion DSCHRIBER 02/23/24 14:15 & Questions: Date: 02/23/24 02/23/24 14:15 Time: 14:17 02/23/24 14:15 Patient unable to answer at this time (ie. confused, unrespo /Reproduction History /Reproductive History - mental health program director: /Reproductive Hx- mental health program director Hx Now No 02/23/24 14:15 Gestational Age (in weeks): EDC: Hx Hx Para Hx Section SAB No 02/23/24 14:15 Active Medications Active Medications: Current Medications Generic Name Dose Route Start Last Admin Trade Name Freq PRN Reason Stop Dose Admin Cefazolin Sodium 2 gm/ Sodium 110 mls @ 150 mls/hr 03/01/24 07:30 Chloride IV 03/01/24 08:13 PREOP ONE Lactated Ringer's 1,000 mls @ 15 mls/hr 03/01/24 06:15 IV .Q48H ANGEL PFSH Medical History (Updated 02/23/24 @ 14:24 by Mary Mathis) Wears glasses Cancer Post-menopausal Anxiety Marijuana use Diabetes Arthritis Restless legs Injury of head and neck Dietary restriction Heartburn Insomnia Non-smoker Leg cramps History of pain when walking Home Medications ?Medication ?Instructions ?Recorded ?Last Taken ?Type bgcumvzzeesv-uucackqc-byjn 1 ea PO DAILY 10/05/15 Unknown History fumarate 7.5 mg-folic acid 400 mcg tablet alendronate 70 mg tablet 70 mg PO KANG 02/23/24 Unknown History artificial tears with lanolin eye 1 applic LEFT EYE DAILY 02/23/24 Unknown History ointment (Ultra Fresh PM eye ointment) atorvastatin 20 mg tablet 20 mg PO QHS 02/23/24 Unknown History dexamethasone sodium phosphate 0.1 1 drp LEFT EYE BID 02/23/24 Unknown History % eye drops mirtazapine 7.5 mg tablet 3.75 mg PO QHS 02/23/24 Unknown History methylprednisolone 4 mg tablets in See Rx Instructions PO .COMPLEX 03/01/24 Unknown Rx a dose pack (Medrol (Dmitry)) #21 tabs Allergy/AdvReac Type Severity Reaction Status Date / Time No Known Allergies Allergy Verified 03/01/24 06:26 Surgical History (Updated 02/23/24 @ 14:24 by Mary Mathis) Hx of left cataract extraction Hx of colonoscopy Hx of total knee arthroplasty Hx of total knee arthroplasty Hx of foot surgery Social History Smoking Status: Never smoker Review of Systems (Anesthesia) ROS Narrative System reviewed and no additional complaints, except as documented.
== END 2024-05-22 23:59 | disposition home or self-care (01) ==
LOC: PAT 13:04
PROVIDERS: PCP Family Medicine; Referring Provider Podiatrist Foot & Ankle Surgery; Visit Provider Podiatrist Foot & Ankle Surgery
DX: Z01.818 Encounter for other preprocedural examination (principal); E11.9 Type 2 diabetes mellitus without complications
CPT/HCPCS: 73110; 82962

== ENCOUNTER 2024-07-10 17:27 | Emergency (ER) | payer MEDICARE, SELFPAY ==
[2024-07-10] VITALS (7 sets, daily range): BP systolic 125–188; BP diastolic 67–152; PULSE 54–78; RESP 16–25; TEMP 36.7–37.1; O2SAT 95–100; BMI 22.1
--- NOTE | 2024-07-10 17:45 | RAD_ITS ---
PROCEDURE: CLAVICLE REASON FOR EXAM: Fall TECHNIQUE: 1 view(s) of right clavicle COMPARISON: None. FINDINGS: RIGHT CLAVICLE: No evidence of fracture. No suspicious osseous lesion. Mild degenerative changes. Right humeral he ad distal overlying glenoid. Acromioclavicular alignment is preserved. Soft tissues are unremarkable. RAD/Clavicle IMPRESSION: 1. Degenerative changes with no acute fracture in the clavicle. 2. Right humeral head dislocation. Reading Location: [facility]
--- NOTE | 2024-07-10 17:45 | RAD_ITS ---
PROCEDURE: SHOULDER MIN 2 VIEWS REASON FOR EXAM: Fall TECHNIQUE: One (1) view of right shoulder COMPARISON: None. FINDINGS: RIGHT SHOULDER: No fracture. No suspicious bone lesion. Moderate degenerative changes. Anterior inferior dislocation of the humeral head. Soft tissues are unremarkable. RAD/Shoulder min 2 Views IMPRESSION: Anteroinferior dislocation of the right humeral head with no definite acute fra cture. Reading Location: [facility]
--- NOTE | 2024-07-10 18:39 | EDS_ITS ---
HPI History of Present Illness Chief Complaint: Dislocation Informant: patient and family Narrative Narrative: 73-year-old female presenting to the emergency room with right shoulder injury in the accompaniment of her family. Patient states that she was outside when her Pashto Yi caused her to fall. She notes injury to the right shoulder. Family states that she also fell last week because of the dog which resulted in a subconjunctival hemorrhage. She states that she saw ophthalmology for that. She denies any other injuries other than to the right shoulder. She states that she sat prior surgery on the shoulder and had screws placed due to tears. She states she has had prior shoulder dislocation on that side. She does not know who her orthopedic surgeon is. She denies any headache or neck pain. She denies any chest or abdominal pain. She denies any leg symptoms. She notes an abrasion to the right forearm [facility] Medical History Wears glasses Cancer Post-menopausal Anxiety Marijuana use Diabetes Arthritis Restless legs Injury of head and neck Dietary restriction Heartburn Insomnia Non-smoker Leg cramps History of pain when walking Home Medications ?Medication ?Instructions ?Recorded ?Last Taken ?Type ulvzcfgdejaq-syfdgzux-lbyp 1 ea PO DAILY 10/05/15 Unknown History fumarate 7.5 mg-folic acid 400 mcg tablet alendronate 70 mg tablet 70 mg PO KANG 02/23/24 Unknown History artificial tears with lanolin eye 1 applic LEFT EYE DAILY 02/23/24 Unknown History ointment (Ultra Fresh PM eye ointment) atorvastatin 20 mg tablet 20 mg PO QHS 02/23/24 Unknown History dexamethasone sodium phosphate 0.1 1 drp LEFT EYE BID 02/23/24 Unknown History % eye drops mirtazapine 7.5 mg tablet 3.75 mg PO QHS 02/23/24 Unknown History methylprednisolone 4 mg tablets in See Rx Instructions PO .COMPLEX 03/01/24 Unknown Rx a dose pack (Medrol (Dmitry)) #21 tabs amoxicillin 875 mg-potassium 875 mg PO Q12H #20 TABLETS 05/17/24 Unknown Rx clavulanate 125 mg tablet mupirocin 2 % topical ointment 1 applic topical TID Right hand 05/17/24 Unknown Rx puncture wound 14 days #1 tube oxycodone-acetaminophen 5 mg-325 1 tab PO Q6H PRN pain 3 days #12 07/10/24 Unknown Rx mg tablet (Percocet) tabs Allergy/AdvReac Type Severity Reaction Status Date / Time No Known Allergies Allergy Verified 07/10/24 17:28 Surgical History Hx of left cataract extraction Hx of colonoscopy Hx of total knee arthroplasty Hx of total knee arthroplasty Hx of foot surgery Social History (Updated 07/10/24 @ 19:27 by Lakshmi Swenson) household members: none Smoking Status: Never smoker ROS ROS ED Constitutional Constitutional ED: Denies chills or weight loss Eyes Eyes: Denies change in vision or diplopia ENT ENT ED: Denies ear pain, rhinorrhea or sore throat Cardiovascular Cardiovascular: Denies chest pain, orthopnea, palpitations or racing heartbeat Respiratory/Chest Respiratory/Chest: Denies cough, dyspnea or orthopnea Gastrointestinal Gastrointestinal: Denies abdominal pain, diarrhea, nausea or vomiting Genitourinary Genitourinary ED: Denies dysuria, hematuria or urinary frequency Musculoskeletal Musculoskeletal: Reports other Details: See history of present illness ; Denies arthralgias, back pain, myalgias or neck pain Integumentary Reports Abrasions; Denies abscess or rash Neurologic Neurologic: Denies headache(s) or weakness Psychiatric Psychiatric: Denies anxiety, depression, suicidal ideation or suicidal thoughts Endocrine Endocrinology: Denies polydipsia, polyphagia or polyuria Allergic/Immunologic Allergic/Immunologic ED: Denies mouth swelling, tongue swelling or urticaria EXAM Physical Exam Const Vital Signs: 07/10/24 17:27 07/10/24 18:29 07/10/24 18:29 Temperature 98.7 F Temperature Source Temporal Pulse Rate 59 L Pulse Rate [1 (Initial Baseline)] 54 L Pulse Rate [3] 58 L Respiratory Rate 16 Respiratory Rate [1 (Initial Baseline)] 20 H Respiratory Rate [3] 18 Blood Pressure 188/152 H Blood Pressure [1 (Initial Baseline)] 158/76 H Blood Pressure [3] 127/74 H Blood Pressure Mean 164 Pulse Ox 100 Oxygen Delivery Method Room Air Oxygen Delivery Method [1 (Initial Baseline)] Nasal Cannula Oxygen Delivery Method [3] Nasal Cannula Oxygen Flow Rate (L/min) Oxygen Flow Rate (L/min) [1 (Initial Baseline)] 4 Oxygen Flow Rate (L/min) [3] 4 EtCo2 (Normal 35-45 , high quality CPR 10-20 & ROSC>/=40mmHg 30 EtCo2 (Normal 35-45 , high quality CPR 10-20 & ROSC>/=40mmHg [1 (Initial Baseline)] 27 EtCo2 (Normal 35-45 , high quality CPR 10-20 & ROSC>/=40mmHg [3] 32 07/10/24 18:39 07/10/24 19:10 07/10/24 19:15 Temperature 98.1 F Temperature Source Pulse Rate 57 L Pulse Rate [1 (Initial Baseline)] Pulse Rate [3] Respiratory Rate 25 H Respiratory Rate [1 (Initial Baseline)] Respiratory Rate [3] Blood Pressure 154/100 H Blood Pressure [1 (Initial Baseline)] Blood Pressure [3] Blood Pressure Mean Pulse Ox 97 Oxygen Delivery Method Room Air Nasal Cannula Room Air Oxygen Delivery Method [1 (Initial Baseline)] Oxygen Delivery Method [3] Oxygen Flow Rate (L/min) 4 98 Oxygen Flow Rate (L/min) [1 (Initial Baseline)] Oxygen Flow Rate (L/min) [3] EtCo2 (Normal 35-45 , high quality CPR 10-20 & ROSC>/=40mmHg 32 33 EtCo2 (Normal 35-45 , high quality CPR 10-20 & ROSC>/=40mmHg [1 (Initial Baseline)] EtCo2 (Normal 35-45 , high quality CPR 10-20 & ROSC>/=40mmHg [3] 07/10/24 19:20 Temperature Temperature Source Pulse Rate Pulse Rate [1 (Initial Baseline)] Pulse Rate [3] Respiratory Rate Respiratory Rate [1 (Initial Baseline)] Respiratory Rate [3] Blood Pressure Blood Pressure [1 (Initial Baseline)] Blood Pressure [3] Blood Pressure Mean Pulse Ox Oxygen Delivery Method Room Air Oxygen Delivery Method [1 (Initial Baseline)] Oxygen Delivery Method [3] Oxygen Flow Rate (L/min) Oxygen Flow Rate (L/min) [1 (Initial Baseline)] Oxygen Flow Rate (L/min) [3] EtCo2 (Normal 35-45 , high quality CPR 10-20 & ROSC>/=40mmHg 35 EtCo2 (Normal 35-45 , high quality CPR 10-20 & ROSC>/=40mmHg [1 (Initial Baseline)] EtCo2 (Normal 35-45 , high quality CPR 10-20 & ROSC>/=40mmHg [3] Positive well nourished and well developed General Appearance ED: well developed HEENT Reports normocephalic, head/scalp atraumatic and moist mucous membranes Eyes PERRL and EOMs intact bilaterally General Eye ED: Yes other Other Details: There is a medial subconjunctival hemorrhage on the left eye. Neck full ROM, no lymphadenopathy, supple and no JVD Resp normal respiratory effort and clear to auscultation bilaterally Cardio regular rate, regular rhythm and no murmurs GI normal to inspection, nondistended, normoactive bowel sounds and non-tender Palpation: soft Back/Spine no CVA tenderness and normal ROM Extremity Extremity Narrative: Limited range of motion of the right shoulder. She holds it in abduction. She denies any loss of sensation of the hand or forearm or upper arm. General Extremety ED: Negative for edema General Extremity: Negative for edema Neuro oriented x3 and CN's II-XII intact bilaterally Sensorium / Orientation: alert Motor Exam: strength 5/5 throughout Psych mental status grossly normal Mood & Affect: Negative for depressed or tearful Skin no rashes or lesions noted and no wounds PROC Procedures Procedural Sedation 1 (Initial Baseline): Consent Signed: Yes Any Problems With Anesthesia: No You/Your family experience fever (hyperthermia) w/anesthesia: No Sedation medication: Propofol Route: IV Maliampati Score: Class I ASA Classification: I MDM MDM MDM Narrative Medical decision making narrative: My independent interpretation of the plain films of the right shoulder is a anterior-inferior shoulder dislocation. My independent interpretation of the plain films of the right clavicle is no acute fracture or shoulder dislocation noted. My independent interpretation of the plain films of the postreduction shoulder is successful reduction no fracture noted. Patient provided informed written consent for procedural sedation. Patient received 0.25 mg/kg bolus x 1 followed by second dose and adequate sedation was achieved. Using the Milch technique the shoulder was easily reduced. She was placed in a sling and swath. She was allowed to recover from the anesthesia. She is neurovascularly intact post reduction only. She did not have any episodes of hypotension apnea or hypoxia noted. Family would like to follow-up with orthopedics in [place]. Organ to have a disc made of their imaging. I will write for pain medication. They were advised that it is very easy to read dislocate this shoulder. Monitor for any clinical changes return if worsening or concerns History & Record Review Discussion w/independent historian: Patient and Family Radiography Diagnostic Testing: Clinical Impression(s) from Imaging Studies Clavicle X-Ray 07/10/24 17:45 IMPRESSION: 1. Degenerative changes with no acute fracture in the clavicle. 2. Right humeral head dislocation. [facility] Should[facility] 07/10/24 17:45 IMPRESSION: Anteroinferior dislocation of the right humeral head with no definite acute fracture. Reading Location: [facility] Discharge Plan Triage Chief Complaint: Dislocation ED Provider: Sameer Fleming Dx/Rx/DC Orders Clinical Impression: Fall, Dislocated shoulder Instructions: ED Dislocation: Shoulder (Reduced) Prescriptions: New oxycodone-acetaminophen [Percocet] 5-325 mg tablet 1 tab PO Q6H PRN (Reason: pain) 3 Days Qty: 12 0RF No Action szxfqjhs-syz-eqqn fum-folic ac 1 EACH tablet 1 ea PO DAILY mupirocin 2 % ointment 1 applic topical TID 14 Days Qty: 1 0RF amoxicillin-pot clavulanate 875-125 mg tablet 875 mg PO Q12H Qty: 20 0RF Ultra Fresh PM Ointment 1 applic LEFT EYE DAILY alendronate 70 mg tablet 70 mg PO KANG dexamethasone sodium phosphate 0.1 % drops 1 drp LEFT EYE BID atorvastatin 20 mg tablet 20 mg PO QHS mirtazapine 7.5 mg tablet 3.75 mg PO QHS methylprednisolone [Medrol (Dmitry)] 4 mg tablets,dose pack See Rx Instructions .ROUTE .COMPLEX Qty: 21 0RF Rx Instructions: for 6 days Primary Care Provider: Ken Velásquez Referrals: Ken Velásquez MD [Primary Care Provider] - Keep Pete appointment Jermaine Portillo MD [Med Staff - Active Staff] - As soon as possible (for local orthopedics) Activity Restrictions/Additional Instructions: Please follow-up with orthopedics of your choosing. If you wish to see someone local please see the referral above. Print Language: Greek Disposition Disposition: Home, Self Care
[2024-07-10] MEDS: Ondansetron 4 MG/2 ML Vial IV (18:53)
[2024-07-10] MEDS: Morphine 4 MG/ML Syringe IV (18:54)
--- NOTE | 2024-07-10 19:10 | RAD_ITS ---
PROCEDURE: SHOULDER MIN 2 VIEWS REASON FOR EXAM: Reduction. TECHNIQUE: Two views of the right shoulder. COMPARISON: Same day radiograph. FINDINGS: RIGHT SHOULDER: Interval reduction of a previously visualized anteroinferior humeral head dislocation. No evidence o f acute fracture. Degenerative changes are present. Humeral head anchors. RAD/Shoulder min 2 Views IMPRESSION: Interval reduction of the humeral head and anatomic alignment. Reading Location: [id number]
== END 2024-07-10 20:24 | disposition home or self-care (01) ==
PROVIDERS: Emergency Provider Emergency Medicine; PCP Family Medicine; Visit Provider Emergency Medicine
DX: S43.014A Anterior dislocation of right humerus, initial encounter (principal); W19.XXXA Unspecified fall, initial encounter; Z79.899 Other long term (current) drug therapy
CPT/HCPCS: 23650; 73000; 73030; 96374; 96375; 99284; A4216; J2405